=== PATIENT | female | born 1980 | race Caucasian/White ===

== ENCOUNTER 2024-10-22 17:47 | Emergency (ER) | payer MEDICAID ==
[~2024-10-22] VITALS: Ht 170.2 cm; Wt 51.4 kg
[2024-10-22 17:51] VITALS: TEMP 98.6
[2024-10-22 18:15] VITALS: BP 142/65; PULSE 67; RESP 15; O2SAT 99
--- NOTE | 2024-10-22 18:44 | Physician Documentation ---
History of Present Illness ~ Chief Complaint: Hypertension Stated Complaint: LEG PAIN Time Seen by MD: 18:10 Mode of Arrival: POV HPI This 44-year-old female presents with pain and swelling to her left lower extremity, patient reports this started on Sunday and was much more swollen than, patient reports she was seen by urgent care today and directed to the emergency department for concern for blood clot. Patient reports no history of blood clots, patient reports no daily medications including no hormonal control, no history of cancer, no history of recent prolonged immobilization. Patient reports she had an episode of chest pain and shortness breath lasting approximately hours yesterday however she took some hydroxyzine and it resolved, patient reports no chest pain or shortness breath today. Patient reports no other acute symptoms or concerns. Medication Reconciliation Allergies: Coded Allergies: No Known Allergies (Unverified , 10/22/24) Review of Systems ROS Pain and swelling to left lower extremity as stated above in the HPI, otherwise all systems are reviewed and negative. Physical Exam Vital Signs: Temperature: 98.6, Heart Rate: 67, Respiratory Rate: 15, BP: 142/65, Pulse Oximetry: 99, Weight: 51.350 Physical Exam VITALS: Reviewed and as above. GENERAL: Alert, nontoxic appearing, no apparent distress. RESPIRATORY: No increased work of breathing, no respiratory distress, speaking in full clear sentences MUSCULOSKELETAL: Left calf tender to palpation, left lower extremity mildly edematous as compared to right lower extremity, no erythema, no ecchymosis Progress Results/Orders Results/Orders Vital Signs 10/22/24 10/22/24 17:51 18:15 Temp 98.6 Pulse 80 67 Resp 15 15 B/P (MAP) 131/71 142/65 (90) Pulse Ox 100 99 EKG/XRAY/CT/US/VASC/MRI Vascular : Impression Left lower extremity venous duplex Clinical History: edema Comparison: None Findings: Duplex Doppler evaluation of the deep venous system of the left lower extremity from the common femoral vein to the popliteal vein including color Doppler and spectral/pulsed waveform analysis was performed. The common femoral vein demonstrates appropriate compressibility and waveform variability . There is compressibility/patency of the great saphenous vein at the proximal thigh . The femoral vein demonstrates appropriate compressibility and waveform variability . The deep femoral vein demonstrates appropriate compressibility and waveform variability . The popliteal vein demonstrates appropriate compressibility and waveform variability . There is normal compressibility at the tibioperoneal trunk. right common femoral vein demonstrates appropriate compressibility and waveform variability . Impression: No left femoropopliteal venous thrombosis. If clinical concern/symptoms persist or worsen, short-interval follow-up study is suggested. Dictated by:BHASKAR CARVALHO MD Dictation date and time:10/23/24625 Electronically Signed by: BHASKAR CARVALHO MD Date and Time: 10/23/24625 Transcribed: [facility] Medical Decision Making Findings This 44-year-old female presented with the pain and swelling to her left lower extremity onset approximately five days prior, it was reassuring patient reported the pain and swelling in the leg has decreased though there was still concern for DVT and vascular ultrasound of the area was obtained, per initial report from tree and shrub technician, vascular ultrasound did not de monstrate evidence of DVT. As patient did not report chest pain or shortness of breath and vital signs are stable I have very low suspicion for pulmonary embolism. The shortness of breath and chest pain patient reported occurring the day before appears to be anxiety related as it resolved after she took her hydroxyzine prescribed for anxiety and has not reoccurred. As patient reports starting and new exercise regiment pain and swelling to the leg may be related to this. Remainder of physical exam was benign and patient is appropriate for outpatient follow up. Patient provided return to care precautions which he has verbalized understanding of. Plan will be to call patient back if final vascular study report demonstrates DVT. Final vascular report did not demonstrate DVT Differential Dx:Considerations: Include other (DVT, PE) Departure Time of Disposition: 19:08 Disposition: 01 HOME / SELF CARE / HOMELESS Impression: Primary Impression: Leg pain, left Condition: Improved Discharge Instructions: RICE Therapy for Routine Care of Injuries, [id number] Additional Instructions: Cause of the left-sided leg pain and swelling is unknown but it is reassuring it has decreased since you have been resting it starting Sunday, continue to rest and ice it as this may be a sports-related injury given your report of beginning to exercise again. Please follow up with your primary care provider in the next few days. Please return to the emergency department for any new or worsening concerning symptoms including but not limited to chest pain or shortness of breath. Referrals: NO PRIMARY CARE PROVIDER (PCP) Education Educated: Patient Educated regarding: diagnosis Signature Scribe Signature: No scribe Attestation: The note accurately reflects work and decisions made by me.ILA Abernathy 10/23/24 03:28 ZAIRA VALVERDE October 22, 2024 18:44
--- NOTE | 2024-10-23 06:28 | VASCULAR REPORT ---
Left lower extremity venous duplex Clinical History: edema Comparison: None Findings: Duplex Doppler evaluation of the deep venous system of the left lower extremity from the common femor al vein to the popliteal vein including color Doppler and spectral/pulsed waveform analysis was perfo rmed. The common femoral vein demonstrates appropriate compressibility and waveform variability . There is compressibility/patency of the great saphenous vein at the proximal thigh . The femoral vein demonstrates appropriate compressibility and waveform variability . The deep femoral vein demonstrates appropriate compressibility and waveform variability . The popliteal vein demonstrates appropriate compressibility and waveform variability . There is normal compressibility at the tibioperoneal trunk. right common femoral vein demonstrates appropriate compressibility and waveform variability . Impression: No left femoropopliteal venous thrombosis. If clinical concern/symptoms persist or worsen, short-interval follow-up study is suggested.
== END 2024-10-22 19:26 | disposition home or self-care (01) ==
LOC: ER 17:47
DX: M79.662 Pain in left lower leg (principal); I10 Essential (primary) hypertension
CPT/HCPCS: 93971; 99284